=== PATIENT | male | born 1955 | race Caucasian/White ===

== ENCOUNTER 2018-01-19 16:55 | Emergency (ER) | payer OTHER ==
[~2018-01-19] VITALS: Ht 182.9 cm; Wt 63.0 kg
[~2018-01-19 16:55] MED LIST: AMLODIPINE BESY10 M1 PO; ATENOLOL100 MG PO; CAR1 PO; CARISOPRODOL350 MG PO; COL250 PO; DULOXETINE60 MG PO; EFF37 PO; ELA25 PO; FERROUS SULFAT325 M2 PO; LISINOPRIL40 MG PO; NPHOS PO; OMEPRAZOLE20 M2 PO; PROTONIX TR40 M1 PO; SEROQUEL XR300 M1 PO; SIMVASTATIN20 M1 PO; VITC PO
[2018-01-19 16:58] VITALS: BP 101/61; Ht 182.9 cm; Wt 63.0 kg
== END 2018-01-19 17:50 | disposition home or self-care (01) ==
LOC: ED 16:55
DX: G89.29 Other chronic pain (principal); M54.5 Low back pain; Z76.0 Encounter for issue of repeat prescription; J44.9 Chronic obstructive pulmonary disease, unspecified; I10 Essential (primary) hypertension

== ENCOUNTER 2019-07-01 17:38 | Emergency (ER) | payer OTHER ==
[~2019-07-01] VITALS: Ht 180.3 cm; Wt 64.9 kg
[2019-07-01 17:51] VITALS: Ht 180.3 cm; Wt 64.9 kg
[2019-07-01 19:10] VITALS: BP 126/87
== END 2019-07-01 19:05 | disposition home or self-care (01) ==
LOC: ED 17:38
DX: M25.531 Pain in right wrist (principal); R53.1 Weakness; I10 Essential (primary) hypertension; J44.9 Chronic obstructive pulmonary disease, unspecified; G89.29 Other chronic pain; M54.9 Dorsalgia, unspecified
CPT/HCPCS: Q0092

== ENCOUNTER 2019-07-07 17:51 | Emergency (ER) | payer OTHER ==
[~2019-07-07] VITALS: Ht 182.9 cm; Wt 64.0 kg
[2019-07-07 18:45] VITALS: BP 139/89; Ht 182.9 cm; Wt 64.0 kg
== END 2019-07-07 20:18 | disposition left against medical advice (07) ==
LOC: ED 17:51
DX: S69.91XA Unspecified injury of right wrist, hand and finger(s), initial encounter (principal); R07.81 Pleurodynia; W19.XXXA Unspecified fall, initial encounter; Y93.89 Activity, other specified; Y92.89 Other specified places as the place of occurrence of the external cause; Y99.8 Other external cause status
CPT/HCPCS: J1885

== ENCOUNTER 2019-11-18 19:13 | Emergency (ER) | payer OTHER ==
[~2019-11-18] VITALS: Ht 185.4 cm; Wt 63.7 kg
[2019-11-18 19:17] VITALS: Ht 185.4 cm; Wt 63.7 kg
[2019-11-18 19:49] LABS: BASOPHIL % 1.2 % (0-2); PLATELET COUNT 248 x10^3mcL (130-400); RED CELL DISTRIBUTION WIDTH 14.1 % (11.5-14.5)
[2019-11-18 21:33] VITALS: BP 122/82
== END 2019-11-18 21:33 | disposition home or self-care (01) ==
LOC: ED 19:13
PROVIDERS: Emergency Medicine
DX: R04.0 Epistaxis (principal); J44.9 Chronic obstructive pulmonary disease, unspecified; G89.29 Other chronic pain; M54.9 Dorsalgia, unspecified
CPT/HCPCS: 36415

== ENCOUNTER 2019-11-20 17:34 | Emergency (ER) | payer OTHER ==
[~2019-11-20] VITALS: Ht 182.9 cm; Wt 64.0 kg
[2019-11-20 17:40] VITALS: Ht 182.9 cm; Wt 64.0 kg
[2019-11-20 19:02] VITALS: BP 82/50
== END 2019-11-20 19:02 | disposition home or self-care (01) ==
LOC: ED 17:34
DX: R04.0 Epistaxis (principal); I95.9 Hypotension, unspecified; Z13.89 Encounter for screening for other disorder; J44.9 Chronic obstructive pulmonary disease, unspecified; Z98.890 Other specified postprocedural states

== ENCOUNTER 2019-12-11 22:35 | Emergency (ER) | payer OTHER ==
[~2019-12-11] VITALS: Ht 182.9 cm; Wt 65.3 kg
[2019-12-12 01:01] VITALS: BP 108/70
== END 2019-12-12 01:01 | disposition home or self-care (01) ==
LOC: ED 22:35
DX: R04.0 Epistaxis (principal); F17.210 Nicotine dependence, cigarettes, uncomplicated; J44.9 Chronic obstructive pulmonary disease, unspecified; I10 Essential (primary) hypertension; G89.29 Other chronic pain
CPT/HCPCS: 99406

== ENCOUNTER 2019-12-13 15:03 | Emergency (ER) | payer OTHER ==
[~2019-12-13] VITALS: Ht 182.9 cm; Wt 62.1 kg
[2019-12-13 15:28] VITALS: Ht 182.9 cm; Wt 62.1 kg
[2019-12-13 15:49] VITALS: BP 118/55
== END 2019-12-13 15:49 | disposition home or self-care (01) ==
LOC: ED 15:03
DX: R04.0 Epistaxis (principal); J44.9 Chronic obstructive pulmonary disease, unspecified; I10 Essential (primary) hypertension; G89.29 Other chronic pain; Z98.890 Other specified postprocedural states

== ENCOUNTER 2020-03-15 02:21 | Emergency (ER) | payer OTHER ==
[~2020-03-15] VITALS: Ht 182.9 cm; Wt 61.9 kg
[2020-03-15 02:25] VITALS: BP 172/98
== END 2020-03-15 04:18 | disposition home or self-care (01) ==
LOC: ED 02:21
DX: S63.501A Unspecified sprain of right wrist, initial encounter (principal); S00.83XA Contusion of other part of head, initial encounter; I10 Essential (primary) hypertension; J44.9 Chronic obstructive pulmonary disease, unspecified; W18.30XA Fall on same level, unspecified, initial encounter; Y93.89 Activity, other specified; Y92.89 Other specified places as the place of occurrence of the external cause; Y99.8 Other external cause status
CPT/HCPCS: Q0092

== ENCOUNTER 2020-08-23 17:31 | Emergency (ER) | payer OTHER ==
[~2020-08-23] VITALS: Ht 182.9 cm; Wt 66.2 kg
[2020-08-23 17:44] VITALS: Ht 182.9 cm; Wt 66.2 kg
[2020-08-23] MEDS ORDERED: IBU600 M2 PO (18:32)
[2020-08-23 19:06] VITALS: BP 154/70
== END 2020-08-23 19:07 | disposition home or self-care (01) ==
LOC: ED 17:31
DX: M21.331 Wrist drop, right wrist (principal); R03.0 Elevated blood-pressure reading, without diagnosis of hypertension; J44.9 Chronic obstructive pulmonary disease, unspecified; I10 Essential (primary) hypertension; Z98.890 Other specified postprocedural states